=== PATIENT | female | born 1950 | race Caucasian/White ===

== ENCOUNTER 2017-03-20 11:45 | Emergency (ER) | payer MEDICARE, OTHER ==
[2017-03-20 10:55] LABS: BASOPHILS 0.7 %; BASOPHILS ABSOLUTE 0.07 10/3/uL (0.0-0.16); EOSINOPHILS 2.4 %; EOSINOPHILS ABSOLUTE 0.25 10/3/uL (0.0-0.53); HEMATOCRIT 31.8 % (36.0-48.0); HEMOGLOBIN 11.2 g/dL (12.0-16.0); IMMATURE GRANULOCYTES 0.2 %; IMMATURE GRANULOCYTES ABSOLUTE 0.02 10/3/uL (0.0-0.11); LYMPHOCYTES 49.9 %; LYMPHOCYTES ABSOLUTE 5.28 10/3/uL (0.67-4.30); MANUAL DIFF NO %; MEAN CORPUS HGB CONC 35.2 g/dL (32.0-36.0); MEAN CORPUSCULAR VOLUME 88.1 fL (80-100); MEAN PLATELET VOLUME 10.2 fL (9.2-13.0); MONOCYTES 7.2 %; MONOCYTES ABSOLUTE 0.76 10/3/uL (0.21-1.20); NEUTROPHILS 39.6 %; NEUTROPHILS ABSOLUTE 4.21 10/3/uL (2.02-8.40); PLATELET COUNT 420 10/3/uL (150-400); RBC DISTRIBUTION WIDTH 12.9 % (12.0-16.0); RED CELL COUNT 3.61 10/6/uL (4.0-5.6); WHITE BLOOD CELLS 10.6 10/3/uL (4.5-10.5)
[2017-03-20 11:03] LABS: PROTIME (NOT ORD) 12.6 SEC (12.0-14.5)
[2017-03-20 11:05] LABS: PARTIAL THROMBO TIME 20.1 SEC (22.5-37.2)
[2017-03-20 11:12] LABS: ALKALINE PHOSPHATASE 119 U/L (45-117); CHEST PAIN PROFILE TAT 0 Hrs 21 Mins; CHLORIDE, SERUM 107 MMOL/L (96-112); CREATININE 2.32 MG/DL (0.55-1.02); GFR AFRICAN AMERICAN 25 ML/MIN (>=60); GFR NON AFRICAN AMERICAN 21 ML/MIN (>=60); POTASSIUM, SERUM 4.3 MMOL/L (3.5-5.3); SGPT(ALT) 21 U/L (5-65); SODIUM, SERUM 139 MMOL/L (135-148); TOTAL BILIRUBIN 0.2 MG/DL (0-1.2); TOTAL PROTEIN 5.7 G/DL (6.0-8.5); TROPONIN I <0.02 NG/ML (<0.05)
[2017-03-20 11:13] LABS: BUN (BLOOD UREA NITROGEN) 48 MG/DL (6-23); CALCIUM, SERUM 8.1 MG/DL (8.5-10.4); CO2 (CARBON DIOXIDE) 22 MMOL/L (24-34); GLUCOSE, SERUM 152 MG/DL (60-99)
[2017-03-20 11:14] LABS: ALBUMIN 2.6 G/DL (3.5-5.0); DIRECT BILIRUBIN 0.1 MG/DL (0.0-0.4); INDIRECT BILIRUBIN(NOT ORDER) 0.1 MG/DL (0.1-0.9); SGOT(AST) 14 U/L (5-40)
[2017-03-20 11:15] LABS: BASOPHILS 1 %; BASOPHILS ABSOLUTE (CALC) 0.11 10/3/uL (0.0-0.16); EOSINOPHILS 3 %; EOSINOPHILS ABSOLUTE (CALC) 0.32 10/3/uL (0.0-0.53); ER DIFF TAT 0 Hrs 24 Mins; LYMPHOCYTES 44 %; LYMPHOCYTES ABSOLUTE (CALC) 4.66 10/3/uL (0.67-4.30); MONOCYTES 6 %; MONOCYTES ABSOLUTE (CALC) 0.64 10/3/uL (0.21-1.20); NEUTROPHILS ABSOLUTE (CALC) 4.88 10/3/uL (2.02-8.40); PLATELET ESTIMATE SLT INC (ADEQUATE); RBC MORPHOLOGY NORM (NORMAL); SEGMENTED NEUTROPHIL (0) 46 %; TOTAL NUCLEATED CELLS 100
[~2017-03-20 11:45] MED LIST: ADALAT CC60 MG PO; ASAB PO; B 12; BETHAN10B PO; BUM2 PO; CARDIA XT PO; CARTIA XT240 MG/24 PO; CO Q-10100 MG PO; COMBIVENT INH; COZAAR100 MG PO; FISH OIL1200 MG PO; FISH-EPA1000 MG PO; FLORASTOR250 MG PO; FLOVENT110 INH; HUMALOG SC; HYDROCHLOROT12.5 MG PO; IMDUR30 PO; IPRA17AE INH; KAPIDEX30 MG PO; KAPIDEX60 MG PO; KRILL OIL PO; L20 PO; L40 PO; LANTUS SC; LEVAQUIN750 MG PO; LIVALO2 MG PO; LUTEIN10 MG OR; MAGNESIUM PO; MICRO-K10 MEQ PO; MULTIVITAMI1 PO; NEUR100 PO; NEXIUM40 PO; NORV10 PO; NORV5 PO; NOVOLOG SC; PLAVIX PO; POTASSIUM PO; PRAVAC PO; PRILO PO; PRILOSEC40 MG PO; PRIN20; PRIN20 PO; PRIN5 PO; PROAIR HFA INH; SINGULAIR1 PO; SPIRO25 PO; SYMBICORT 160/41 INH INH; SYN.05 PO; SYSTANE OPH; TRADJENTA PO; VENTOLIN HFA INH; VICTOZA18 MG/3 ML SC; VITAMIN B PO; VITAMIN D31000 UNIT PO; Z PACK PO; ZANTAC150 MG PO
[2017-03-20 15:55] LABS: ASCORBIC ACID (UR NOT ORDER) NEG (NEG); BILIRUBIN, URINE NEGATIVE (NEG); ER URINALYSIS TAT 0 Hrs 18 Mins; KETONE, URINE NEGATIVE (NEG); LEUKOCYTE ESTERASE(NOT OR NEG (NEG); NITRITE (URINE) NEG (NEG); WBC (NOT ORDERED) (RFLEX) 2 (0-5)
== END 2017-03-20 16:19 | disposition home or self-care (01) ==
LOC: ER 11:45
PROVIDERS: Emergency Medicine
DX: R06.00 Dyspnea, unspecified (principal); F41.9 Anxiety disorder, unspecified; N17.9 Acute kidney failure, unspecified; J44.9 Chronic obstructive pulmonary disease, unspecified; I25.10 Atherosclerotic heart disease of native coronary artery without angina pectoris; I11.0 Hypertensive heart disease with heart failure; I50.9 Heart failure, unspecified; K21.9 Gastro-esophageal reflux disease without esophagitis; E11.9 Type 2 diabetes mellitus without complications; Z85.89 Personal history of malignant neoplasm of other organs and systems; Z87.01 Personal history of pneumonia (recurrent); Z87.891 Personal history of nicotine dependence; Z91.041 Radiographic dye allergy status; Z88.0 Allergy status to penicillin; Z88.2 Allergy status to sulfonamides; Z88.5 Allergy status to narcotic agent; Z79.4 Long term (current) use of insulin; Z79.899 Other long term (current) drug therapy
CPT/HCPCS: 71010; 80048; 80076; 81001; 83735; 83880; 84484; 85025; 85610; 85730; 93005; 96374; 99284; J2930